=== PATIENT | female | born 1940 | race Caucasian/White ===

== ENCOUNTER 2024-03-08 15:59 | Inpatient (IN) | payer OTHER ==
[~2024-03-08] VITALS: Ht 152.4 cm; Wt 63.5 kg
[2024-03-08 16:25] VITALS: BP 173/107; PULSE 115; RESP 18; TEMP 98.1; O2SAT 97
[2024-03-08] MEDS: NACL 0.9% 1,000 ML IV SCH ×2 (16:44→23:49)
[2024-03-08 17:01] LABS: BASOPHILS # (AUTO) 0.1 K/uL (0.00-0.22); BASOPHILS % (AUTO) 0.7 % (0.0-2.0); EOSINOPHILS # (AUTO) 0.6 K/uL (0-0.4); EOSINOPHILS % (AUTO) 8.1 % (0.0-4.0); HEMATOCRIT 38.2 % (36-48); HEMOGLOBIN 12.6 g/dL (12.0-16.0); LYMPHOCYTES # (AUTO) 1.7 K/uL (2.5-16.5); LYMPHOCYTES % (AUTO) 21.8 % (20.5-51.1); MEAN CORPUSCULAR HEMOGLOBIN 27 pg (27-31); MEAN CORPUSCULAR HGB CONC 33 g/dL (33-37); MEAN CORPUSCULAR VOLUME 81.3 fL (80-94); MONOCYTES # (AUTO) 1.3 K/uL (0.8-1.0); NEUTROPHILS # (AUTO) 4.1 K/uL (1.8-7.7); NEUTROPHILS % (AUTO) 52.2 % (42.2-75.2); PLATELET COUNT (AUTO) 234 K/uL (140-450); RED CELL DISTRIBUTION WIDTH 18.2 % (11.6-13.7); WHITE BLOOD COUNT (AUTO) 7.8 K/uL (4.8-10.8)
[2024-03-08 17:06] LABS: MONOCYTES % (AUTO) 17.2 % (1.7-9.3)
[2024-03-08 17:12] LABS: ANION GAP 13.9 (8-16); CHLORIDE 105 mmol/L (98-107); CREATININE 1.6 mg/dL (0.6-1.3); GLUCOSE 84 mg/dL (74-106); POTASSIUM 4.9 mmol/L (3.5-5.1); SODIUM SERUM 142 mmol/L (136-145); UREA NITROGEN, BLOOD 34 mg/dL (7-18)
[2024-03-08 17:19] LABS: ALANINE AMINOTRANSFERASE 16 U/L (12-78); ALBUMIN 3.5 g/dL (3.4-5.0); ALKALINE PHOSPHATASE 138 U/L (50-136); ASPARTATE AMINOTRANSFERASE 22 U/L (15-37); BILIRUBIN,DIRECT 0.3 mg/dL (0.0-0.3); CREATINE KINASE, TOTAL 52 U/L (26-192); LIPASE 38 U/L (16-77); TOTAL BILIRUBIN 0.8 mg/dL (0.0-1.0); TOTAL PROTEIN, SERUM 7.1 g/dL (6.4-8.2)
[2024-03-08] MEDS ORDERED: MIDAZOLAM 2 MG/2 ML VIAL ONE (17:47)
[2024-03-08] MEDS: MIDAZOLAM 2 MG/2 ML VIAL IVP ONE (17:52)
[2024-03-08] MEDS: ONDANSETRON 4 MG/2 ML VIAL IVP ONE (17:55)
[2024-03-08] MEDS ORDERED: MECLIZINE 25 MG TAB ONE (17:59)
[2024-03-08] MEDS: MECLIZINE 25 MG TAB PO ONE (18:39)
[2024-03-08 18:57] LABS: APPEARANCE,URINE CLEAR (CLEAR); BILIRUBIN,URINE NEGATIVE (NEGATIVE); BLOOD, URINE NEGATIVE (NEGATIVE); COLOR,URINE YELLOW (YELLOW); LEUKOCYTE ESTERASE ,URINE NEGATIVE (NEGATIVE); NITRITE, URINE NEGATIVE (NEGATIVE); PROTEIN,URINE 2+ (NEGATIVE); UGLUCOSE NEGATIVE (NEGATIVE); UROBILINOGEN,URINE 0.2 EU/dL (0.2 - 1)
[2024-03-08 19:19] LABS: BACTERIA,URINE FEW /HPF (None Seen); MUCUS,URINE None Seen /LPF (None Seen); RBC,URINE 0-5 /HPF (0-5); SQUAMOUS EPITHELIAL CELL,UR 4-10 (MOD) /LPF (0-3 (FEW)); TRICHOMONAS,URINE None Seen /HPF (None Seen); WBC,URINE 0-5 /HPF (0-5); YEAST,URINE None Seen /HPF (None Seen)
[2024-03-08 19:23] VITALS: O2SAT 97
[2024-03-08 21:49] VITALS: O2SAT 98
[2024-03-08] MEDS ORDERED: MAG SULF 2000 MG/WATER PREMIX 50 ML IV PRN (23:05)
[2024-03-08] MEDS ORDERED: MAGNESIUM OXIDE 400 MG TAB PO PRN (23:05)
[2024-03-08] MEDS ORDERED: MECLIZINE 25 MG TAB PO PRN (23:05)
[2024-03-08] MEDS ORDERED: KCL 20 MEQ IN 100 mL PREMIX 200 ML IV PRN (23:05)
[2024-03-08] MEDS ORDERED: LISI-953 PO (23:15)
[2024-03-08] MEDS ORDERED: FURO-570 PO (23:15)
[2024-03-08] MEDS ORDERED: PRED10TA5 PO (23:15)
[2024-03-08] MEDS ORDERED: LACT1CAP67 PO (23:15)
[2024-03-08] MEDS ORDERED: ATEN25TA7 PO (23:15)
[2024-03-08] MEDS ORDERED: ALBU0.0912 IH (23:15)
[2024-03-08] MEDS ORDERED: MEX2.5 (23:15)
[2024-03-08] MEDS ORDERED: NITR0.4T2 SL (23:15)
[2024-03-08] MEDS ORDERED: MAGNESIUM (23:15)
[2024-03-08] MEDS ORDERED: MSCON15 PO (23:15)
[2024-03-08] MEDS ORDERED: OXYB5TAB44 PO (23:15)
[2024-03-08] MEDS ORDERED: ONDA-188 PO (23:15)
[2024-03-08] MEDS ORDERED: ALEN70TA85 PO (23:15)
[2024-03-08] MEDS ORDERED: FOLI1TAB90 PO (23:15)
[2024-03-08] MEDS ORDERED: POTA8TAB19 PO (23:15)
[2024-03-08] MEDS ORDERED: SYN.05 PO (23:15)
[2024-03-09 00:25] VITALS: RESP 16
[2024-03-09 00:29] VITALS: O2SAT 95
[2024-03-09 08:00] VITALS: RESP 18
[2024-03-09] MEDS: MECLIZINE 25 MG TAB PO SCH (14:48)
[2024-03-09 16:00] VITALS: BP 121/78; PULSE 91; RESP 18; TEMP 98.1; O2SAT 98
[2024-03-09] MEDS: MORPHINE SULFATE 2 MG/ML SYR ONE (16:28)
[2024-03-09] MEDS ORDERED: ONDANSETRON 4 MG/2 ML VIAL IVP PRN (18:20)
[2024-03-09] MEDS: ONDANSETRON 4 MG/2 ML VIAL IVP PRN (18:37)
[2024-03-09 20:00] VITALS: BP 158/72; PULSE 110; RESP 20; TEMP 97; O2SAT 98
[2024-03-09] MEDS: MORPHINE SULFATE 2 MG/ML SYR IVP PRN (21:01)
[2024-03-09 22:47] LABS: BASOPHILS # (AUTO) 0.1 K/uL (0.00-0.22); BASOPHILS % (AUTO) 1.4 % (0.0-2.0); EOSINOPHILS # (AUTO) 0.5 K/uL (0-0.4); HEMATOCRIT 42.1 % (36-48); HEMOGLOBIN 13.8 g/dL (12.0-16.0); LYMPHOCYTES # (AUTO) 1.8 K/uL (2.5-16.5); LYMPHOCYTES % (AUTO) 17.5 % (20.5-51.1); MEAN CORPUSCULAR HEMOGLOBIN 27 pg (27-31); MEAN CORPUSCULAR HGB CONC 33 g/dL (33-37); MONOCYTES # (AUTO) 1.4 K/uL (0.8-1.0); MONOCYTES % (AUTO) 13.3 % (1.7-9.3); NEUTROPHILS # (AUTO) 6.5 K/uL (1.8-7.7); NEUTROPHILS % (AUTO) 62.8 % (42.2-75.2); PLATELET COUNT (AUTO) 256 K/uL (140-450); RED CELL DISTRIBUTION WIDTH 18.1 % (11.6-13.7); WHITE BLOOD COUNT (AUTO) 10.4 K/uL (4.8-10.8)
[2024-03-09 23:37] LABS: ANION GAP 16.6 (8-16); CALCIUM 9.9 mg/dL (8.5-10.1); CARBON DIOXIDE 23.4 mmol/L (21-32); CHLORIDE 105 mmol/L (98-107); CREATININE 1.4 mg/dL (0.6-1.3); GLUCOSE 105 mg/dL (74-106); SODIUM SERUM 141 mmol/L (136-145); UREA NITROGEN, BLOOD 30 mg/dL (7-18)
[2024-03-09 23:38] LABS: MAGNESIUM 2.1 mg/dL (1.8-2.4); PHOSPHORUS 3.1 mg/dL (2.5-4.9)
[2024-03-10 04:00] VITALS: BP 144/68; PULSE 95; RESP 20; TEMP 98.1; O2SAT 97
[2024-03-10 07:15] LABS: ANION GAP 16.5 (8-16); CARBON DIOXIDE 23.5 mmol/L (21-32); CHLORIDE 103 mmol/L (98-107); CREATININE 1.3 mg/dL (0.6-1.3); GLUCOSE 96 mg/dL (74-106); SODIUM SERUM 139 mmol/L (136-145); UREA NITROGEN, BLOOD 25 mg/dL (7-18)
[2024-03-10 07:15] LABS: MAGNESIUM 1.9 mg/dL (1.8-2.4); PHOSPHORUS 2.9 mg/dL (2.5-4.9)
[2024-03-10 07:24] LABS: BASOPHILS # (AUTO) 0.1 K/uL (0.00-0.22); BASOPHILS % (AUTO) 0.8 % (0.0-2.0); EOSINOPHILS # (AUTO) 0.3 K/uL (0-0.4); HEMATOCRIT 40.8 % (36-48); HEMOGLOBIN 13.4 g/dL (12.0-16.0); LYMPHOCYTES # (AUTO) 1.3 K/uL (2.5-16.5); LYMPHOCYTES % (AUTO) 12.9 % (20.5-51.1); MEAN CORPUSCULAR HEMOGLOBIN 27 pg (27-31); MEAN CORPUSCULAR HGB CONC 33 g/dL (33-37); MONOCYTES # (AUTO) 1.1 K/uL (0.8-1.0); MONOCYTES % (AUTO) 10.7 % (1.7-9.3); NEUTROPHILS # (AUTO) 7.3 K/uL (1.8-7.7); NEUTROPHILS % (AUTO) 72.6 % (42.2-75.2); PLATELET COUNT (AUTO) 264 K/uL (140-450); RED BLOOD CELL COUNT(AUTO) 5.04 MIL/uL (4.20-5.40); RED CELL DISTRIBUTION WIDTH 18.2 % (11.6-13.7)
[2024-03-10 08:00] VITALS: BP 163/105; PULSE 77; RESP 18; RESP 20; TEMP 96.9; O2SAT 97; O2SAT 98
[2024-03-10] MEDS ORDERED: MORPHINE TAB ER 15 MG TABER PO SCH (14:00)
[2024-03-10 16:00] VITALS: BP 159/98; PULSE 85; RESP 20; TEMP 98; O2SAT 97
[2024-03-10] MEDS: oxyCODONE 5 MG TAB PO PRN (16:45)
[2024-03-10 20:00] VITALS: BP 174/92; PULSE 103; PULSE 85; RESP 20; TEMP 96.8; O2SAT 94
[2024-03-10] MEDS: POLYETHYLENE GLYCOL 17 GM/PKT PO SCH (20:07)
[2024-03-10] MEDS: atenoloL 25 MG TAB PO SCH (20:08)
[2024-03-11] VITALS (8 sets, daily range): BP systolic 154–174; BP diastolic 76–94; PULSE 85–110; RESP 18–35; TEMP 97–97.9; O2SAT 93–99
[2024-03-11] MEDS: hydrALAZINE 20 MG/ML VIAL IVP PRN (01:45)
[2024-03-11] MEDS: ALBUTEROL SULFATE/IPRATROPIU 3 ML SOL IH ONE (02:46)
[2024-03-11] MEDS ORDERED: ALBUTEROL SULFATE/IPRATROPIU 3 ML SOL IH SCH (03:00)
[2024-03-11] MEDS: ALBUTEROL SULFATE/IPRATROPIU 3 ML SOL IH SCH (07:46)
[2024-03-11] MEDS ORDERED: METHOTREXATE 2.5 MG TAB PO SCH (09:00)
[2024-03-11] MEDS: LEVOTHYROXINE 0.05 MG TAB PO SCH (09:03)
[2024-03-11] MEDS: predniSONE 10 MG TAB PO SCH (09:03)
[2024-03-11 21:09] LABS: BASOPHILS % (AUTO) 0.5 % (0.0-2.0); EOSINOPHILS # (AUTO) 0.1 K/uL (0-0.4); EOSINOPHILS % (AUTO) 0.8 % (0.0-4.0); HEMATOCRIT 38.3 % (36-48); HEMOGLOBIN 12.7 g/dL (12.0-16.0); LYMPHOCYTES # (AUTO) 1.3 K/uL (2.5-16.5); LYMPHOCYTES % (AUTO) 15.7 % (20.5-51.1); MEAN CORPUSCULAR HEMOGLOBIN 27 pg (27-31); MEAN CORPUSCULAR HGB CONC 33 g/dL (33-37); MEAN CORPUSCULAR VOLUME 80.1 fL (80-94); MONOCYTES # (AUTO) 1.2 K/uL (0.8-1.0); MONOCYTES % (AUTO) 14.8 % (1.7-9.3); NEUTROPHILS # (AUTO) 5.5 K/uL (1.8-7.7); NEUTROPHILS % (AUTO) 68.2 % (42.2-75.2); PLATELET COUNT (AUTO) 255 K/uL (140-450); RED BLOOD CELL COUNT(AUTO) 4.78 MIL/uL (4.20-5.40); RED CELL DISTRIBUTION WIDTH 18.1 % (11.6-13.7)
[2024-03-11 21:27] LABS: CALCIUM 8.8 mg/dL (8.5-10.1); CARBON DIOXIDE 20.9 mmol/L (21-32); CHLORIDE 104 mmol/L (98-107); CREATININE 1.3 mg/dL (0.6-1.3); GLUCOSE 117 mg/dL (74-106); POTASSIUM 3.9 mmol/L (3.5-5.1); SODIUM SERUM 138 mmol/L (136-145); UREA NITROGEN, BLOOD 17 mg/dL (7-18)
[2024-03-11 21:54] LABS: MAGNESIUM 1.8 mg/dL (1.8-2.4); PHOSPHORUS 2.7 mg/dL (2.5-4.9)
[2024-03-12] VITALS (8 sets, daily range): BP systolic 161–162; BP diastolic 78–95; PULSE 78–109; RESP 18–22; TEMP 97–97.6; O2SAT 94–98
[2024-03-12] MEDS: HYDROmorphone 2 MG TAB PO PRN (01:46)
[2024-03-12 07:26] LABS: BASOPHILS # (AUTO) 0.1 K/uL (0.00-0.22); BASOPHILS % (AUTO) 1.1 % (0.0-2.0); EOSINOPHILS # (AUTO) 0.5 K/uL (0-0.4); EOSINOPHILS % (AUTO) 5.6 % (0.0-4.0); HEMATOCRIT 36.3 % (36-48); HEMOGLOBIN 12.2 g/dL (12.0-16.0); LYMPHOCYTES # (AUTO) 1.8 K/uL (2.5-16.5); LYMPHOCYTES % (AUTO) 19.5 % (20.5-51.1); MEAN CORPUSCULAR HEMOGLOBIN 27 pg (27-31); MEAN CORPUSCULAR HGB CONC 34 g/dL (33-37); MEAN CORPUSCULAR VOLUME 80.3 fL (80-94); MONOCYTES # (AUTO) 1.4 K/uL (0.8-1.0); MONOCYTES % (AUTO) 15.7 % (1.7-9.3); NEUTROPHILS # (AUTO) 5.3 K/uL (1.8-7.7); NEUTROPHILS % (AUTO) 58.1 % (42.2-75.2); PLATELET COUNT (AUTO) 240 K/uL (140-450); RED BLOOD CELL COUNT(AUTO) 4.51 MIL/uL (4.20-5.40); RED CELL DISTRIBUTION WIDTH 18.2 % (11.6-13.7); WHITE BLOOD COUNT (AUTO) 9.1 K/uL (4.8-10.8)
[2024-03-12 07:33] LABS: CALCIUM 8.6 mg/dL (8.5-10.1); CARBON DIOXIDE 22.4 mmol/L (21-32); CHLORIDE 105 mmol/L (98-107); CREATININE 1.2 mg/dL (0.6-1.3); GLUCOSE 79 mg/dL (74-106); POTASSIUM 3.4 mmol/L (3.5-5.1); SODIUM SERUM 139 mmol/L (136-145); UREA NITROGEN, BLOOD 18 mg/dL (7-18)
[2024-03-12] MEDS: ALBUTEROL SULFATE/IPRATROPIU 3 ML SOL IH PRN (07:48)
[2024-03-12 07:51] LABS: MAGNESIUM 1.9 mg/dL (1.8-2.4); PHOSPHORUS 2.6 mg/dL (2.5-4.9)
[2024-03-12] MEDS: POTASSIUM CHLORIDE 10 MEQ TABER PO PRN (08:29)
[2024-03-12] MEDS ORDERED: atenoloL 25 MG TAB PO ONE (16:20)
[2024-03-12] MEDS ORDERED: atenoloL 50 MG TAB PO SCH (16:23)
[2024-03-16] MEDS ORDERED: METHOTREXATE 2.5 MG TAB PO SCH (09:00)
== END 2024-03-12 16:30 | disposition home or self-care (01) | DRG 149 ==
LOC: MED 15:59 → MTU 23:02 → OBSVTOIN 23:02 → MTU 03-09
PROVIDERS: ADMIT Hospitalist; ATTEND Hospitalist
DX: H83.09 Labyrinthitis, unspecified ear (principal); F11.20 Opioid dependence, uncomplicated; G89.29 Other chronic pain; M06.9 Rheumatoid arthritis, unspecified; Z88.5 Allergy status to narcotic agent; Z88.6 Allergy status to analgesic agent; Z88.8 Allergy status to other drugs, medicaments and biological substances; Z88.1 Allergy status to other antibiotic agents; Z79.899 Other long term (current) drug therapy; Z79.51 Long term (current) use of inhaled steroids; R42 Dizziness and giddiness
CPT/HCPCS: 36415; 70450; 71045; 80048; 80076; 81001; 82550; 83605; 83690; 83735; 83880; 84100; 84484; 85025; 87040; 87086; 93005; 94640; 97110; 97112; 97530; J0360; J1644; J2250; J2270; J2405; J7512; J8597; Q0163